=== PATIENT | female | born 1970 | race African-American/Black ===

== ENCOUNTER 2017-11-15 21:22 | Inpatient (IN) | payer SELFPAY ==
[~2017-11-15] VITALS: Ht 162.6 cm; Wt 74.3 kg
[~2017-11-15 21:22] MED LIST: CYAN1000P SC
[2017-11-15] MEDS ORDERED: IOHEXOL 350 MG/ML 10 ML VIAL (for RAD DIAG) IVCONTRAST ONE (21:23)
[2017-11-15 21:35] VITALS: BP 146/68; PULSE 78; RESP 18; TEMP 98
[2017-11-15] MEDS ORDERED: vitamin b12 (21:55)
[2017-11-15] MEDS ORDERED: SODIUM CHLOR 0.9% 1000 ML INJ 1,000 ML IV SCH (21:57)
[2017-11-15] MEDS ORDERED: MORPHINE SULFATE 4 MG/ML INJ IV PUSH ONE (22:00)
[2017-11-15] MEDS ORDERED: METOCLOPRAMIDE HCL 10 MG/2 ML VIAL IV PUSH ONE (22:00)
--- NOTE | 2017-11-15 22:17 | PD ---
HPI Chief Complaint: Abdominal Pain Time Seen by Provider: 21:42 Travel History International Travel<30 days: No Contact w/Intl Traveler<30days: No Traveled to known affect area: No History of Present Illness HPI 47-year-old female that presents to the ED for evaluation of epigastric abdominal pain. Per patient she has had this since 6:00 this afternoon. Per patient she was going to the bathroom and she started having the pain. She has not had this before. She states that she had a hysterectomy. She is still has her gallbladder. She states that the pain feels severe and sharp. Per patient is 8 out of 10. Nothing makes it better. Still states she did vomit once and felt nauseous but not anymore. No medical issues alert and pernicious anemia for which she gets IM injections of B12. Has no allergies to medication. Has not seen anybody for this. Pain not better which is what prompted evaluation. Denies any chest pain. No shortness of breath. No recent travel. No injury or trauma. No weakness or numbness. No recent surgeries. No allergies to medication. No fevers chills or sweats. PFSH Past Medical History Anemia: Yes Arthritis: No Asthma: No Autoimmune Disease: No Blood Disorders: No Heart Rhythm Problems: No Cancer: No Cardiovascular Problems: Yes High Cholesterol: No Chest Pain: Yes (THIS ADMISSION) Congestive Heart Failure: No COPD: No Cerebrovascular Accident: No Diabetes: No Diminished Hearing: No Endocrine: No GERD: No Glaucoma: No Genitourinary: No Headaches: No Hepatitis: No Hiatal Hernia: No Hypertension: No Immune Disorder: No Kidney Stones: No Musculoskeletal: No Neurologic: No Psychiatric: No Respiratory: Yes (SOB THIS ADMISSION) Myocardial Infarction: No Renal Failure: No Seizures: No Sickle Cell Disease: Yes (TRAIT) Sleep Apnea: No Thyroid Disease: No Ulcer: No Tetanus Vaccination: Unknown Influenza Vaccination: No ?: Not : 3 Para: 3 Past Surgical History Abdominal Surgery: No Cardiac Surgery: No Ear Surgery: No Endocrine Surgery: No Eye Surgery: No Genitourinary Surgery: No Gynecologic Surgery: Yes (HYSTERECTOMY) Hysterectomy: Yes Oral Surgery: No Thoracic Surgery: No Social History Alcohol Use: No Tobacco Use: No Substance Use: No Allergies-Medications (Allergen,Severity, Reaction): Coded Allergies: No Known Allergies (Unverified , 11/15/17) Reported Meds & Prescriptions Reported Meds & Active Scripts Active Reported [vitamin b12] Review of Systems Except as stated in HPI: all other systems reviewed are Neg Physical Exam Narrative GENERAL: SKIN: Warm and dry. HEAD: Atraumatic. Normocephalic. EYES: Pupils equal and round. No scleral icterus. No injection or drainage. ENT: No nasal bleeding or discharge. Mucous membranes pink and moist. Tongue is midline. No uvula deviation. NECK: Trachea midline. No JVD. CARDIOVASCULAR: Regular rate and rhythm. No murmurs, S3, S4. RESPIRATORY: No accessory muscle use. Clear to auscultation. Breath sounds equal bilaterally. GASTROINTESTINAL: Abdomen soft, tender on the upper abdominal area especially in the epigastric area and the right upper quadrant, nondistended. Hepatic and splenic margins not palpable. MUSCULOSKELETAL: Extremities without clubbing, cyanosis, or edema. No obvious deformities. Full range of motion of the upper and lower extremities bilaterally. 2+ pulses bilaterally. NEUROLOGICAL: Awake and alert. No obvious cranial nerve deficits. Motor grossly within normal limits. Five out of 5 muscle strength in the arms and legs. Normal speech. PSYCHIATRIC: Appropriate mood and affect; insight and judgment normal. Data Data Last Documented VS Vital Signs Date Time Temp Pulse Resp B/P (MAP) Pulse Ox O2 Delivery O2 Flow Rate FiO2 11/15/17 21:35 98.0 78 18 146/68 (94) Orders Orders Complete Blood Count With Diff (11/15/17 21:57) Comprehensive Metabolic Panel (11/15/17 21:57) Lipase (11/15/17 21:57) Lactic Acid (11/15/17 21:57) Urinalysis - C+S If Indicated (11/15/17 21:57) Ct Abd/Pel W Iv Contrast(Rout) (11/15/17 21:57) Iv Access Insert/Monitor (11/15/17 21:57) Ecg Monitoring (11/15/17 21:57) Morphine Inj (Morphine Inj) (11/15/17 22:00) Sodium Chlor 0.9% 1000 Ml Inj (Ns 1000 M (11/15/17 21:57) Metoclopramide Inj (Reglan Inj) (11/15/17 22:00) Electrocardiogram (11/15/17 ) MDM Medical Decision Making Medical Screen Exam Complete: Yes Emergency Medical Condition: Yes Medical Record Reviewed: Yes Differential Diagnosis Cholecystitis versus cholelithiasis versus pancreatitis versus gastritis versus acute abdomen versus obstruction Narrative Course 47-year-old female that presents to the ED for evaluation of epigastric abdominal pain. Labs and imaging order. Patient was given IV pain medications and antiemetics and fluids. Case signed out to my attending pending disposition and plan. Bassam Bob Nov 15, 2017 22:17
--- NOTE | 2017-11-15 22:25 | HHI.HP ---
[facility] Primary [facility] Physician No Primary Care Physician Admission Diagnosis Diagnoses: Travel History International Travel<30 Days: No Contact w/Intl Traveler <30 Da: No Traveled to Known Affected Are: No Past Family Social History Allergies: Coded Allergies: No Known Allergies (Unverified , 11/15/17) Physical Exam Vital Signs Vital Signs Date Time Temp Pulse Resp B/P (MAP) Pulse Ox O2 Delivery O2 Flow Rate FiO2 11/15/17 21:35 98.0 78 18 146/68 (94) Physical Exam GENERAL: This is a well-nourished, well-developed patient, in no apparent distress. SKIN: No rashes, ecchymoses or lesions. Cool and dry. HEAD: Atraumatic. Normocephalic. No temporal or scalp tenderness. EYES: Pupils equal round and reactive. Extraocular motions intact. No scleral icterus. No injection or drainage. ENT: Nose without bleeding, purulent drainage or septal hematoma. Throat without erythema, tonsillar hypertrophy or exudate. Uvula midline. Airway patent. NECK: Trachea midline. No JVD or lymphadenopathy. Supple, nontender, no meningeal signs. CARDIOVASCULAR: Regular rate and rhythm without murmurs, gallops, or rubs. RESPIRATORY: Clear to auscultation. Breath sounds equal bilaterally. No wheezes , rales, or rhonchi. GASTROINTESTINAL: Abdomen soft, non-tender, nondistended. No hepato-splenomegaly , or palpable masses. No guarding. MUSCULOSKELETAL: Extremities without clubbing, cyanosis, or edema. No joint tenderness, effusion, or edema noted. No calf tenderness. Negative Homans sign bilaterally. NEUROLOGICAL: Awake and alert. Cranial nerves II through XII intact. Motor and sensory grossly within normal limits. Five out of 5 muscle strength in all muscle groups. Normal speech. Caprini VTE Risk Assessment Caprini Risk Assessment Model Point Value = 1 Point Value = 2 Point Value = 3 Point Value = 5 Age 41-60 Minor surgery BMI > 25 kg/m2 Swollen legs Varicose veins or History of unexplained or recurrent spontaneous Oral contraceptives or hormone replacement Sepsis (< 1 month) Serious lung disease, including pneumonia (< 1 month) Abnormal pulmonary function Acute myocardial infarction Congestive heart failure (< 1 month) History of inflammatory bowel disease Medical patient at bed rest Age 61-74 Arthroscopic surgery Major open surgery (> 45 min) Laparoscopic surgery (> 45 min) Malignancy Confined to bed (> 72 hours) Immobilizing plaster cast Central venous access Age >= 75 History of VTE Family history of VTE Factor V Leiden Prothrombin [id number] Lupus anticoagulant Anticardiolipin antibodies Elevated serum homocysteine Heparin-induced thrombocytopenia Other congenital or acquired thrombophilia Stroke (< 1 month) Elective arthroplasty Hip, pelvis, or leg fracture Acute spinal cord injury (< 1 month) Prophylaxis Regimen Total Risk Factor Score Risk Level Prophylaxis Regimen 0-1 Low Early ambulation 2 Moderate Order ONE of the following: *Sequential Compression Device (SCD) *Heparin 5000 units SQ BID 3-4 Higher Order ONE of the following medications: *Heparin 5000 units SQ TID *Enoxaparin/Lovenox 40 mg SQ daily (WT < 150 kg, CrCl > 30 mL/min) *Enoxaparin/Lovenox 30 mg SQ daily (WT < 150 kg, CrCl > 10-29 mL/min) *Enoxaparin/Lovenox 30 mg SQ BID (WT < 150 kg, CrCl > 30 mL/min) AND/OR *Sequential Compression Device (SCD) 5 or more Highest Order ONE of the following medications: *Heparin 5000 units SQ TID (Preferred with Epidurals) *Enoxaparin/Lovenox 40 mg SQ daily (WT < 150 kg, CrCl > 30 mL/min) *Enoxaparin/Lovenox 30 mg SQ daily (WT < 150 kg, CrCl > 10-29 mL/min) *Enoxaparin/Lovenox 30 mg SQ BID (WT < 150 kg, CrCl > 30 mL/min) AND *Sequential Compression Device (SCD) Physician Certification Order for Inpatient Services The services are ordered in accordance with Medicare regulations or non- Medicare payer requirements, as applicable. In the case of services not specified as inpatient-only, they are appropriately provided as inpatient services in accordance with the 2-midnight benchmark. days is the estimated time the patient will need to remain in the hospital, assuming treatment plan goals are met and no additional complications. Sarah Marshall MD Nov 15, 2017 22:25
--- NOTE | 2017-11-15 22:29 | PD ---
Physical Exam Date Seen by Provider: Nov 15, 2017 Data Data Last Documented VS Vital Signs Date Time Temp Pulse Resp B/P (MAP) Pulse Ox O2 Delivery O2 Flow Rate FiO2 11/16/17 00:25 98.0 88 20 140/72 (94) 98 Room Air Orders Orders Complete Blood Count With Diff (11/15/17 21:57) Comprehensive Metabolic Panel (11/15/17 21:57) Lipase (11/15/17 21:57) Lactic Acid (11/15/17 21:57) Urinalysis - C+S If Indicated (11/15/17 21:57) Ct Abd/Pel W Iv Contrast(Rout) (11/15/17 21:57) Iv Access Insert/Monitor (11/15/17 21:57) Ecg Monitoring (11/15/17 21:57) Morphine Inj (Morphine Inj) (11/15/17 22:00) Sodium Chlor 0.9% 1000 Ml Inj (Ns 1000 M (11/15/17 21:57) Metoclopramide Inj (Reglan Inj) (11/15/17 22:00) Electrocardiogram (11/15/17 ) Us Abdomen Gallbladder (11/15/17 ) Urine Culture (11/15/17 22:20) Sodium Chlor 0.9% 1000 Ml Inj (Ns 1000 M (11/15/17 23:00) Piperacil-Tazo 3.375 Gm Premix (Zosyn 3. (11/15/17 23:30) Sodium Chlor 0.9% 1000 Ml Inj (Ns 1000 M (11/15/17 23:30) Iohexol 350 Inj (Omnipaque 350 Inj) (11/15/17 21:23) Blood Culture (11/16/17 01:10) Admit Order (Ed Use Only) (11/16/17 01:16) Labs Laboratory Tests Test 11/15/17 22:20 White Blood Count 13.2 TH/MM3 Red Blood Count 4.96 MIL/MM3 Hemoglobin 13.1 GM/DL Hematocrit 39.8 % Mean Corpuscular Volume 80.3 FL Mean Corpuscular Hemoglobin 26.4 PG Mean Corpuscular Hemoglobin Concent 32.8 % Red Cell Distribution Width 13.2 % Platelet Count 241 TH/MM3 Mean Platelet Volume 9.6 FL Neutrophils (%) (Auto) 89.6 % Lymphocytes (%) (Auto) 5.3 % Monocytes (%) (Auto) 4.8 % Eosinophils (%) (Auto) 0.1 % Basophils (%) (Auto) 0.2 % Neutrophils # (Auto) 11.8 TH/MM3 Lymphocytes # (Auto) 0.7 TH/MM3 Monocytes # (Auto) 0.6 TH/MM3 Eosinophils # (Auto) 0.0 TH/MM3 Basophils # (Auto) 0.0 TH/MM3 CBC Comment DIFF FINAL Differential Comment Urine Color YELLOW Urine Turbidity CLEAR Urine pH 6.5 Urine Specific Sherman 1.009 Urine Protein NEG mg/dL Urine Glucose (UA) NEG mg/dL Urine Ketones NEG mg/dL Urine Occult Blood NEG Urine Nitrite NEG Urine Bilirubin NEG Urine Urobilinogen 8.0 MG/DL Urine Leukocyte Esterase SMALL Urine RBC 1 /hpf Urine WBC 3 /hpf Urine Squamous Epithelial Cells 1 /hpf Urine Bacteria MANY /hpf Urine Mucus FEW /lpf Microscopic Urinalysis Comment CULTURE INDICATED Blood Urea Nitrogen 5 MG/DL Creatinine 0.89 MG/DL Random Glucose 105 MG/DL Total Protein 7.7 GM/DL Albumin 3.9 GM/DL Calcium Level 8.5 MG/DL Alkaline Phosphatase 119 U/L Aspartate Amino Transf (AST/SGOT) 72 U/L Alanine Aminotransferase (ALT/SGPT) 43 U/L Total Bilirubin 0.6 MG/DL Sodium Level 143 MEQ/L Potassium Level 3.9 MEQ/L Chloride Level 108 MEQ/L Carbon Dioxide Level 24.7 MEQ/L Anion Gap 10 MEQ/L Lactic Acid Level 3.9 mmol/L Lipase 23972 U/L [facility] Medical Record Reviewed: Yes Supervised Visit with JERZY: Yes Narrative Course I, Dr. Carlson, have reviewed the advance practice practitioner's documentation and am in agreement, met with the patient face to face, made the diagnosis, and the medical decision making was done by me. *My assessment and Findings: Patient is a 47-year-old female who presents to the emergency room with complaints of upper abdominal pain which began around 6:30 PM tonight. Patient reports that she has been feeling nauseous with her symptoms, denies any vomiting. Patient denies any constipation or diarrhea, denies any fever or chills. Patient reports that she just finished eating dinner at [facility] when symptoms began. Reports only history of hysterectomy for abdominal surgeries in the past. Patient with no chest pain or shortness of breath. Lab work including CT of the abdomen pelvis currently pending. Patient will be given IV fluids, morphine for pain and antinausea medication. CBC & BMP Diagram 11/15/17 22:20 Total Protein 7.7, Albumin 3.9, Calcium Level 8.5, Alkaline Phosphatase 119 H, Aspartate Amino Transf (AST/SGOT) 72 H, Alanine Aminotransferase (ALT/SGPT) 43, Total Bilirubin 0.6 Lactic acid is 3.9 [id number] UA is positive for many bacteria, small leuk esterase Last Impressions Abdomen/Pelvis CT 11/15/177 Signed Impressions: CONCLUSION: 1. Mildly complex bilateral cystic contiguous adnexal mass. A primary consider ation is a cystic ovarian neoplasm such as a cystadenoma. No evidence of ascite s. 2. Nonspecific 2.1 x 2.6 cm hyperdense nodule in the anterior right lower quad rant may represent opacification within bowel or solid nodule. No other bowel i s opacified to this degree. 3. Appendix within normal limits. 4. Cholelithiasis. Gall Bladder Ultrasound 11/15/17 0000 Signed Impressions: CONCLUSION: Cholelithiasis. No gallbladder wall thickening or pericholecystic fluid. Patient with a lactic acid of 3.9, she has been pancultured and was given a dose of Zosyn. Patient's lipase is elevated over 19,000, patient with most likely pancreatitis. No hx of drug abuse. US gallbladder with no thickening or pericholecystic fluid. Patient with no evidence of pancreatitis on her CT of the abdomen pelvis. She does appear to have adnexal mass as well as nodules in her abdomen, she was given a copy of her CT report as she will need to follow- up with all incidental findings. Plan to admit to the patient to the hospital at this time. Physician Communication Physician Communication case reviewed with Dr. Marshall Diagnosis Primary Impression: Pancreatitis Qualified Codes: K85.90 - Acute pancreatitis without necrosis or infection, unspecified Additional Impression: Lactic acidosis Admitting Information Admitting Physician Requests: Taina Hedrick DO Nov 15, 2017 22:29
[2017-11-15 22:34] LABS: AUTOMATED NEUTROPHIL # 11.8 TH/MM3 (1.8-7.7); BASOPHIL % 0.2 % (0.0-2.0); EOSINOPHIL % 0.1 % (0.0-4.0); HEMATOCRIT 39.8 % (35.0-46.0); HEMOGLOBIN 13.1 GM/DL (11.6-15.3); LYMPH % 5.3 % (9.0-44.0); LYMPHOCYTE # 0.7 TH/MM3 (1.0-4.8); MEAN CELL VOLUME 80.3 FL (80.0-100.0); MEAN CORPUSCULAR HEMOGLOBIN 26.4 PG (27.0-34.0); MEAN CORPUSCULAR HGB CONC 32.8 % (32.0-36.0); MEAN PLATELET VOLUME 9.6 FL (7.0-11.0); MONO % 4.8 % (0.0-8.0); MONOCYTE # 0.6 TH/MM3 (0-0.9); NEUT % 89.6 % (16.0-70.0); PLATELET COUNT 241 TH/MM3 (150-450); RED BLOOD COUNT 4.96 MIL/MM3 (4.00-5.30); RED CELL DISTRIBUTION WIDTH 13.2 % (11.6-17.2); WHITE BLOOD COUNT 13.2 TH/MM3 (4.0-11.0)
[2017-11-15 22:41] LABS: BACTERIA, URINE MANY /hpf; BILIRUBIN, URINE NEG (NEG); BLOOD, URINE NEG (NEG); GLUCOSE,URINE NEG (NEG); KETONE, URINE NEG (NEG); MUCUS URINE FEW /lpf (OCC); NITRITE,URINE NEG (NEG); PH, URINE 6.5 (5.0-8.5); SQUAMOUS EPITHELIAL CELL URINE 1 /hpf (0-5); URINE COLOR YELLOW (YELLW/STRAW); URINE LEUKOCYTE ESTERASE SMALL (NEG)
[2017-11-15 22:50] LABS: ALBUMIN 3.9 GM/DL (3.4-5.0); ALT (GPT) 43 U/L (10-53); AST (GOT) 72 U/L (15-37); BICARBONATE 24.7 MEQ/L (21.0-32.0); BLOOD UREA NITROGEN 5 MG/DL (7-18); CALCIUM 8.5 MG/DL (8.5-10.1); CHLORIDE 108 MEQ/L (98-107); CREATININE 0.89 MG/DL (0.50-1.00); GLUCOSE,RANDOM 105 MG/DL (74-106); SODIUM (NA) 143 MEQ/L (136-145)
[2017-11-15 22:53] LABS: ALKALINE PHOSPHATASE 119 U/L (45-117); TOTAL BILIRUBIN ADULT 0.6 MG/DL (0.2-1.0); TOTAL PROTEIN 7.7 GM/DL (6.4-8.2)
[2017-11-15] MEDS ORDERED: SODIUM CHLOR 0.9% 1000 ML INJ 1,000 ML IV ONE ×2 (23:00→23:30)
--- NOTE | 2017-11-15 23:15 | RADRPT ---
EXAM DATE: 11/15/2017 11:09 PM EDT AGE/SEX: 47 years / Female INDICATIONS: Right upper quadrant pain. CLINICAL DATA: This is the patient's initial encounter. Patient reports that signs and/or symptoms h ave been present for 1 day and indicates a pain score of 6/10. MEDICAL/SURGICAL HISTORY: Aneurysm, abdominal. Shortness of breath. Sickle cell disease. Chest pain . Anemia. Hysterectomy. Fracture repair, arm. COMPARISON: No prior exams available for comparison. MEASUREMENTS (cm x cm x cm): Liver:__ 14.4 cm length Common Bile Duct:__ 4mm FINDINGS: Liver: Normal echotexture without focal lesion or ductal dilatation. Portal Vein: Hepatopedal flow seen in portal vein. Common Duct: No intralumincal mass or stone visualized. Gallbladder: Multiple small mobile shadowing gallstones in the dependent portion of the gallbladder. No wall thickening or pericholecystic fluid. Pancreas: The visualized portions are within normal limits Right Kidney: No mass or hydronephrosis Other: None. CONCLUSION: Cholelithiasis. No gallbladder wall thickening or pericholecystic fluid. Electronically signed by: Jaylen Lua MD 11/15/2017 11:13 PM EDT
[2017-11-15] MEDS ORDERED: PIPERACIL-TAZO 3.375 GM PREMIX 50 ML IV ONE (23:30)
[2017-11-16 00:25] VITALS: BP 140/72; PULSE 88; RESP 20; TEMP 98; O2SAT 98
--- NOTE | 2017-11-16 00:34 | RADRPT ---
EXAM DATE: 11/15/2017 11:54 PM EDT AGE/SEX: 47 years / Female INDICATIONS: Abdomen pain. CLINICAL DATA: This is the patient's initial encounter. Patient reports that signs and symptoms have been present for 1 day and indicates a pain score of 7/10. MEDICAL/SURGICAL HISTORY: Sickle Cell disease. Hysterectomy. ORAL CONTRAST: No oral contrast ingested. RADIATION DOSE: 8.08 CTDI (mGy) COMPARISON: No prior exams available for comparison. TECHNIQUE: Multiple contiguous axial images were obtained through the abdomen and pelvis following b olus infusion of 95 ml Omnipaque 350 (iohexol) nonionic water-soluble contrast as a single exam dos e. No oral contrast ingested. Using automated exposure control and adjustment of the mA and/or kV ac cording to patient size, the radiation dose was kept as low as reasonably achievable to obtain optima l diagnostic quality images. FINDINGS: Lower Lungs: The visualized lower lungs are clear. Liver: The liver has a homogeneous density without space-occupying lesion. There is no dilation of th e biliary tree. Multiple small gallstones are seen at the dependent portion of the gallbladder. No pe richolecystic inflammatory changes. Spleen: Homogeneous density without enlargement. Pancreas: Unremarkable without mass or calcification. Kidneys: Normal in size and shape. No evidence of mass or hydronephrosis. Adrenal Glands: Unremarkable. Aorta: The aorta and proximal iliac vessels are grossly unremarkable without aneurysmal dilation. Bowel/Mesentery: No evidence of bowel dilatation. No free air or free fluid. Appendix within normal limits. Abdominal Wall: Intact. Retroperitoneum: No evidence of adenopathy in the retrocrural, para-aortic, or deep pelvic regions. Bladder: Contours are smooth. Reproductive Organs: Multiloculated complex cystic mass involving the right and left adnexal regions measuring 8.8 x 5.6 x 4.8 cm. There is a rounded 2.6 x 2.2 cm hyperdensity in the anterior right low er quadrant adjacent to the inguinal canal that may represent opacified bowel or mass. Inguinal: The inguinal region is unremarkable without evidence of adenopathy. Bony Structures: Unremarkable. CONCLUSION: 1. Mildly complex bilateral cystic contiguous adnexal mass. A primary consideration is a cystic ovar izaiah neoplasm such as a cystadenoma. No evidence of ascites. 2. Nonspecific 2.1 x 2.6 cm hyperdense nodule in the anterior right lower quadrant may represent opa cification within bowel or solid nodule. No other bowel is opacified to this degree. 3. Appendix within normal limits. 4. Cholelithiasis. Electronically signed by: Jaylen Lua MD 11/16/2017 12:33 AM EDT
[2017-11-16] MEDS ORDERED: MAGNESIUM HYDROXIDE SUSP 30 ML CUP PO PRN (01:15)
[2017-11-16] MEDS ORDERED: ACETAMINOPHEN 325 MG TAB PO PRN (01:15)
[2017-11-16] MEDS ORDERED: SODIUM CHLORIDE 0.9% FLUSH 10 ML FLUSH IV FLUSH PRN (01:15)
[2017-11-16] MEDS ORDERED: ACETAMINOPHEN/HYDROcodone 325 MG/5 MG TAB PO PRN (01:15)
[2017-11-16] MEDS ORDERED: METOCLOPRAMIDE HCL 10 MG/2 ML VIAL IV PUSH PRN (01:15)
[2017-11-16] MEDS ORDERED: BISACODYL 10 MG SUPP RECTAL PRN (01:15)
[2017-11-16] MEDS ORDERED: SENNOSIDES 8.6 MG TAB PO PRN (01:15)
[2017-11-16] MEDS ORDERED: LACTULOSE SYRUP 20 GM/30 ML CUP PO PRN (01:15)
[2017-11-16] MEDS ORDERED: MORPHINE SULFATE 4 MG/ML INJ IV PUSH PRN (01:15)
--- NOTE | 2017-11-16 01:44 | HHI.HP ---
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 States symptoms started abruptly yesterday afternoon after eating pork chops and mashed potatoes. Pain is severe, 10/10, constant, non-radiating, associated w/ nausea/vomiting. No h/o similar symptoms. Denies fever, chills or diarrhea. On arrival, BP 146/68, HR 78, O2 sat 98% on RA, Afebrile. WBC 13.2, previously 1.8 on 11/15/2014. Hemoglobin 13.1, previously 8.7 on 2014. Chemistry essentially unremarkable. Lactic Acid 3.9. AST 72, ALT 43, ALP 119, Total Bili 0.6. Lipase 19,383. UA positive for UTI. CT Abdomen/ Pelvis complex bilateral cystic contiguous adnexal mass, possible cystic ovarian neoplasm, nonspecific hyperdense nodule right lower quadrant. US Gallbladder cholelithiasis, no gallbladder wall thickening or pericholecystic fluid. No previous h/o Pancreatitis. S/p Zosyn in ER. Review of Systems Except as stated in HPI: all other systems reviewed are Neg ROS: 14 point review of systems otherwise negative. Past Family Social History Past Medical History PMH: Pernicious Anemia on B12 Past Surgical History PAST SURGICAL HISTORY: Hysterectomy Allergies: Coded Allergies: No Known Allergies (Unverified , 11/15/17) Family History PAST FAMILY HISTORY: Reviewed. No h/o DM or CAD Social History PAST SOCIAL HISTORY: Negative for alcohol, tobacco or drugs. Physical Exam Vital Signs Vital Signs Date Time Temp Pulse Resp B/P (MAP) Pulse Ox O2 Delivery O2 Flow Rate FiO2 6/11/18 00:25 98.0 88 20 140/72 (94) 98 Room Air 11/15/17 23:24 20 11/15/17 21:35 98.0 78 18 146/68 (94) Physical Exam PE: GENERAL: Pleasant middle-aged white female in no acute distress. HEENT: PERRLA, EOMI. No scleral icterus or conjunctival pallor. No lid lag or facial droop. CARDIOVASCULAR: Regular rate and rhythm. No obvious murmurs to auscultation. No chest tenderness to palpation. RESPIRATORY: No obvious rhonchi or wheezing. Clear to auscultation. Breath sounds equal bilaterally. GASTROINTESTINAL: Abdomen soft, epigastric tenderness palpation, nondistended. BS normal. MUSCULOSKELETAL: Extremities without clubbing, cyanosis, or edema. No obvious deformities. NEUROLOGICAL: Awake, alert and oriented x4. No focal neurologic deficits. Moving both upper and lower extremities spontaneously. Laboratory Laboratory Tests Test 11/15/17 22:20 White Blood Count 13.2 Red Blood Count 4.96 Hemoglobin 13.1 Hematocrit 39.8 Mean Corpuscular Volume 80.3 Mean Corpuscular Hemoglobin 26.4 Mean Corpuscular Hemoglobin Concent 32.8 Red Cell Distribution Width 13.2 Platelet Count 241 Mean Platelet Volume 9.6 Neutrophils (%) (Auto) 89.6 Lymphocytes (%) (Auto) 5.3 Monocytes (%) (Auto) 4.8 Eosinophils (%) (Auto) 0.1 Basophils (%) (Auto) 0.2 Neutrophils # (Auto) 11.8 Lymphocytes # (Auto) 0.7 Monocytes # (Auto) 0.6 Eosinophils # (Auto) 0.0 Basophils # (Auto) 0.0 CBC Comment DIFF FINAL Differential Comment Urine Color YELLOW Urine Turbidity CLEAR Urine pH 6.5 Urine Specific [place] 1.009 Urine Protein NEG Urine Glucose (UA) NEG Urine Ketones NEG Urine Occult Blood NEG Urine Nitrite NEG Urine Bilirubin NEG Urine Urobilinogen 8.0 Urine Leukocyte Esterase SMALL Urine RBC 1 Urine WBC 3 Urine Squamous Epithelial Cells 1 Urine Bacteria MANY Urine Mucus FEW Microscopic Urinalysis Comment CULTURE INDICATED Blood Urea Nitrogen 5 Creatinine 0.89 Random Glucose 105 Total Protein 7.7 Albumin 3.9 Calcium Level 8.5 Alkaline Phosphatase 119 Aspartate Amino Transf (AST/SGOT) 72 Alanine Aminotransferase (ALT/SGPT) 43 Total Bilirubin 0.6 Sodium Level 143 Potassium Level 3.9 Chloride Level 108 Carbon Dioxide Level 24.7 Anion Gap 10 Lactic Acid Level 3.9 Lipase 72530 Date/Time Source Procedure Growth Status 11/15/17 22:20 Urine Random Urine Urine Culture Pending Received Result Diagram: 11/15/17221911/15/172219 Caprini VTE Risk Assessment Caprini VTE Risk Assessment: No/Low Risk (score <= 1) Caprini Risk Assessment Model Point Value = 1 Point Value = 2 Point Value = 3 Point Value = 5 Age 41-60 Minor surgery BMI > 25 kg/m2 Swollen legs Varicose veins or History of unexplained or recurrent spontaneous Oral contraceptives or hormone replacement Sepsis (< 1 month) Serious lung disease, including pneumonia (< 1 month) Abnormal pulmonary function Acute myocardial infarction Congestive heart failure (< 1 month) History of inflammatory bowel disease Medical patient at bed rest Age 61-74 Arthroscopic surgery Major open surgery (> 45 min) Laparoscopic surgery (> 45 min) Malignancy Confined to bed (> 72 hours) Immobilizing plaster cast Central venous access Age >= 75 History of VTE Family history of VTE Factor V Leiden Prothrombin 61029A Lupus anticoagulant Anticardiolipin antibodies Elevated serum homocysteine Heparin-induced thrombocytopenia Other congenital or acquired thrombophilia Stroke (< 1 month) Elective arthroplasty Hip, pelvis, or leg fracture Acute spinal cord injury (< 1 month) Prophylaxis Regimen Total Risk Factor Score Risk Level Prophylaxis Regimen 0-1 Low Early ambulation 2 Moderate Order ONE of the following: *Sequential Compression Device (SCD) *Heparin 5000 units SQ BID 3-4 Higher Order ONE of the following medications: *Heparin 5000 units SQ TID *Enoxaparin/Lovenox 40 mg SQ daily (WT < 150 kg, CrCl > 30 mL/min) *Enoxaparin/Lovenox 30 mg SQ daily (WT < 150 kg, CrCl > 10-29 mL/min) *Enoxaparin/Lovenox 30 mg SQ BID (WT < 150 kg, CrCl > 30 mL/min) AND/OR *Sequential Compression Device (SCD) 5 or more Highest Order ONE of the following medications: *Heparin 5000 units SQ TID (Preferred with Epidurals) *Enoxaparin/Lovenox 40 mg SQ daily (WT < 150 kg, CrCl > 30 mL/min) *Enoxaparin/Lovenox 30 mg SQ daily (WT < 150 kg, CrCl > 10-29 mL/min) *Enoxaparin/Lovenox 30 mg SQ BID (WT < 150 kg, CrCl > 30 mL/min) AND *Sequential Compression Device (SCD) Assessment and Plan Problem List: (1) Pancreatitis ICD Code: K85.90 - Acute pancreatitis without necrosis or infection, unspecified Status: Acute (2) Adnexal mass ICD Code: N94.9 - Unspecified condition associated with female genital organs and menstrual cycle (3) UTI (urinary tract infection) ICD Code: N39.0 - Urinary tract infection, site not specified (4) Lactic acidosis ICD Code: E87.2 - Acidosis Assessment and Plan A/P: 1. Pancreatitis: acute onset of epigastric pain, Lipase 19,383, no h/o Pancreatitis. CT Abd/Pelvis w/ no peripancreatic inflammation, Gallbladder US w / cholelithiasis however no wall t hickening, images reviewed by me. LFTs minimally elevated, Total Bili normal, will repeat labs in am. NPO, IVF, Check Lipid Profile, TSH and Hgb A1c. Analgesics/antiemetics as needed. 2. Adnexal Mass: CT Abd/Pelvis w/ mildly complex bilateral cystic contiguous adnexal mass, possibly cystic ovarian neoplasm, images reviewed by me. Pt denies previous knowledge of similar finding. Will check Transvaginal US, Consult GynOnc as needed for further evaluation/intervention. 3. UTI: U/a w/ UTI, WBC 13, s/p Zosyn in ER, will continue w/ IV Abx, IVF, followup cultures. 4. Lactic Acidosis: Lactic Acid 3.9, likely due to dehydration from acute nausea/vomiting rather than sepsis, IVF, check repeat Lactic Acid, monitor closely. Blood Cultures pending 5. DVT Prophylaxis: SCD/Teds 6. Social work for d/c planning as needed. 7. Case discussed w/ ER physician at length, labs/records/imaging reviewed by me. Physician Certification 2 Midnight Certification Type: Admission for Inpatient Services Order for Inpatient Services The services are ordered in accordance with Medicare regulations or non- Medicare payer requirements, as applicable. In the case of services not specified as inpatient-only, they are appropriately provided as inpatient services in accordance with the 2-midnight benchmark. Estimated LOS (days): 2 days is the estimated time the patient will need to remain in the hospital, assuming treatment plan goals are met and no additional complications. Post-Hospital Plan: Not yet determined Problem Qualifiers (1) Pancreatitis: Qualified Codes: K85.90 - Acute pancreatitis without necrosis or infection, unspecified Sarah Marshall MD Nov 16, 2017 01:44
[2017-11-16 02:00] VITALS: BP 142/64; PULSE 79; RESP 18; TEMP 97.3; O2SAT 99
[2017-11-16] MEDS: SODIUM CHLOR 0.9% 1000 ML INJ 1,000 ML IV SCH ×2 (02:21→23:41)
[2017-11-16 08:00] VITALS: PULSE 59; RESP 17; TEMP 98.1; O2SAT 98
[2017-11-16] MEDS: SODIUM CHLORIDE 0.9% FLUSH 10 ML FLUSH IV FLUSH SCH ×2 (09:00→21:00)
[2017-11-16] MEDS ORDERED: CEFEPIME INJ 1,000 MG in SODIUM CHLORIDE 0.9% INJ 100 ML IV SCH (09:00)
[2017-11-16] MEDS: DOCUSATE SODIUM 50 MG/SENNA 8.6 MG TAB PO SCH ×2 (09:47→21:00)
[2017-11-16 10:51] LABS: AUTOMATED NEUTROPHIL # 4.3 TH/MM3 (1.8-7.7); BASOPHIL % 0.4 % (0.0-2.0); EOSINOPHIL % 0.8 % (0.0-4.0); HEMOGLOBIN 11.9 GM/DL (11.6-15.3); LYMPH % 20.6 % (9.0-44.0); LYMPHOCYTE # 1.2 TH/MM3 (1.0-4.8); MEAN CELL VOLUME 81.1 FL (80.0-100.0); MEAN CORPUSCULAR HEMOGLOBIN 26.1 PG (27.0-34.0); MEAN CORPUSCULAR HGB CONC 32.2 % (32.0-36.0); MONO % 5.2 % (0.0-8.0); MONOCYTE # 0.3 TH/MM3 (0-0.9); PLATELET COUNT 189 TH/MM3 (150-450); RED BLOOD COUNT 4.57 MIL/MM3 (4.00-5.30); RED CELL DISTRIBUTION WIDTH 13.5 % (11.6-17.2); WHITE BLOOD COUNT 5.9 TH/MM3 (4.0-11.0)
[2017-11-16 11:17] LABS: ALBUMIN 3.2 GM/DL (3.4-5.0); ALKALINE PHOSPHATASE 104 U/L (45-117); ALT (GPT) 33 U/L (10-53); AST (GOT) 28 U/L (15-37); BICARBONATE 20.3 MEQ/L (21.0-32.0); BLOOD UREA NITROGEN 5 MG/DL (7-18); CALCIUM 7.6 MG/DL (8.5-10.1); CHLORIDE 114 MEQ/L (98-107); CHOLESTEROL 112 MG/DL (120-200); CHOLESTEROL/ HDL RATIO 1.83 RATIO; CREATININE 0.67 MG/DL (0.50-1.00); GLOMERULAR FILTRATION RATE 114 ML/MIN (>89); GLUCOSE,RANDOM 70 MG/DL (74-106); HDL CHOLESTEROL 61.1 MG/DL (40.0-60.0); LDL CHOLESTEROL 43 MG/DL (0-99); SODIUM (NA) 143 MEQ/L (136-145); TOTAL BILIRUBIN ADULT 0.4 MG/DL (0.2-1.0); TOTAL PROTEIN 6.8 GM/DL (6.4-8.2); TRIGLYCERIDES 40 MG/DL (42-150)
--- NOTE | 2017-11-16 11:21 | HHI.PR ---
Subjective Remarks No abdominal pain since admission. Feels hungry. Wants to eat. Objective Vitals Vital Signs Date Time Temp Pulse Resp B/P (MAP) Pulse Ox O2 Delivery O2 Flow Rate FiO2 11/16/17 08:00 98.1 59 17 98 11/16/17 02:00 97.3 79 18 142/64 (90) 99 11/16/17 00:25 98.0 88 20 140/72 (94) 98 Room Air 11/15/17 23:24 20 11/15/17 21:35 98.0 78 18 146/68 (94) Result Diagram: 11/16/17 1000 11/15/17 2220 Objective Remarks GENERAL: This is a well-nourished, well-developed patient, in no apparent distress. CARDIOVASCULAR: Regular rate and rhythm without murmurs, gallops, or rubs. RESPIRATORY: Clear to auscultation. Breath sounds equal bilaterally. No wheezes , rales, or rhonchi. GASTROINTESTINAL: Abdomen soft, non-tender, nondistended. Normal active bowel sounds MUSCULOSKELETAL: Extremities without clubbing, cyanosis, or edema. NEURO: Alert & Oriented x4 to person, place, time, situation. Moves all ext x4 A/P Problem List: (1) Pancreatitis ICD Code: K85.90 - Acute pancreatitis without necrosis or infection, unspecified Status: Acute (2) Adnexal mass ICD Code: N94.9 - Unspecified condition associated with female genital organs and menstrual cycle (3) UTI (urinary tract infection) ICD Code: N39.0 - Urinary tract infection, site not specified (4) Lactic acidosis ICD Code: E87.2 - Acidosis Assessment and Plan 1. Acute biliary pancreatitis: Supportive care IV fluid hydration, bowel rest overnight and will start clear liquids today and advance diet as tolerated. Lipase levels Currently pending. Patient advised of following up with general surgery for evaluation for cholecystectomy upon discharge. 2. Bilateral adnexal Mass: CT Abd/Pelvis w/ mildly complex bilateral cystic contiguous adnexal mass, possibly cystic ovarian neoplasm. Pt denies previous knowledge of similar finding. Will check Transvaginal US, pending pelvic ultrasound results consideration for further [employer] consultation if needed 3. UTI: U/a w/ UTI, WBC 13, s/p Zosyn in ER, will stop IV antibiotics and start patient on oral Cipro until final urine cultures are available. 4. Lactic Acidosis: Lactic Acid 3.9, likely due to dehydration from acute nausea/vomiting rather than sepsis, IVF, check repeat Lactic Acid currently pending, monitor closely. Blood Cultures pending 5. DVT prophylaxis -bilateral SCDs Discharge Planning Possibly home in the morning pending patient's clinical status Problem Qualifiers (1) Pancreatitis: Qualified Codes: K85.90 - Acute pancreatitis without necrosis or infection, unspecified Enid Ramirez MD Nov 16, 2017 11:21
--- NOTE | 2017-11-16 11:40 | RADRPT ---
EXAM DATE: 11/16/2017 11:05 AM EDT AGE/SEX: 47 years / Female INDICATIONS: Mass seen on Cat Scan. CLINICAL DATA: This is the patient's initial encounter. Patient reports that signs and symptoms have been present for 1 day and indicates a pain score of 0/10. MEDICAL/SURGICAL HISTORY: . Sickle cell trait. Hyste[place]. [place] [facility] [place]/15/[place]. . MEASUREMENTS: Uterus:__absent. Endometrial Stripe:__N/A Right Ovary:__ 5.3 x 5.2 x 4.0 cm Left Ovary:__ 4.6 x 4.7 x 2.7 cm FINDINGS: Patient declined transvaginal imaging. Uterus: Supracervical hysterectomy.. Right Ovary: A simple appearing cyst is seen occupying much of the right ovary. This measures 4.2 x 3.3 x 4.7 cm. A normal waveform is seen involving the right ovary. Left Ovary: A simple appearing cyst is seen occupying much of the left ovary. This measures 3.3 x 2. 7 x 2.7 cm. A normal waveform is seen involving the left ovary. Other: No free fluid. There is a solid hypoechoic nodule involving the anterior aspects of the right lower quadrant. This measures 2.5 x 2.3 x 2.1 cm. This correlates to the nodule seen on the recent C T scan. It is well-circumscribed and smoothly marginated. CONCLUSION: 1. Simple cysts involving the ovaries bilaterally as detailed above. 2. 2.5 x 2.3 x 2.1 cm solid nodule involving the anterior aspects of the right lower quadrant which correlates to the nodule seen on the recent CT scan. The appearance is nonspecific. Electronically signed by: Janes Merino MD 11/16/2017 11:39 AM EDT
[2017-11-16 12:00] VITALS: BP 121/68; PULSE 76; RESP 18; TEMP 97.9; O2SAT 99
--- NOTE | 2017-11-16 14:48 | EKG ---
Date Performed: 11/15/2017 Time Performed: 21:54:46 PTAGE: 47 years EKG: Sinus rhythm POSSIBLE LEFT ATRIAL ENLARGEMENT LOW QRS VOLTAGE IN PRECORDIAL LEADS POSSIBLE RIGHT VENTRICULAR COND UCTION DELAY BORDERLINE ECG Since the PREVIOUS TRACING , no significant change noted PREVIOUS TRACIN11/11/2014 16.29 DOCTOR: Prashanth Logan Interpretating Date/Time 11/16/2017 14:46:50
[2017-11-16 16:00] VITALS: BP 143/82; PULSE 64; RESP 18; TEMP 98.1; O2SAT 100
[2017-11-16 19:53] LABS: HEMOGLOBIN A1C 4.3 % (4.3-6.0)
[2017-11-16 20:00] VITALS: BP 136/80; PULSE 65; RESP 18; TEMP 98.3; O2SAT 100
[2017-11-16] MEDS: CIPROFLOXACIN 500 MG TAB PO SCH (23:36)
[2017-11-17] VITALS: BP 127/71; PULSE 60; RESP 18; TEMP 98.2; O2SAT 100
[2017-11-17 04:00] VITALS: BP 132/68; PULSE 62; RESP 18; TEMP 98.1; O2SAT 100
[2017-11-17 08:10] VITALS: BP 141/80; PULSE 65; RESP 18; TEMP 98.6; O2SAT 99
[2017-11-17] MEDS: CIPROFLOXACIN 500 MG TAB PO SCH (08:50)
[2017-11-17] MEDS: DOCUSATE SODIUM 50 MG/SENNA 8.6 MG TAB PO SCH (08:50)
[2017-11-17] MEDS: SODIUM CHLORIDE 0.9% FLUSH 10 ML FLUSH IV FLUSH SCH (08:50)
[2017-11-17] MEDS: SODIUM CHLOR 0.9% 1000 ML INJ 1,000 ML IV SCH (08:51)
--- NOTE | 2017-11-17 10:03 | HHI.DS ---
Discharge Summary Admission Date Nov 16, 2017 at 01:17 Discharge Date: Nov 17, 2017 Admitting Diagnosis Pancreatitis (1) Pancreatitis ICD Code: K85.90 - Acute pancreatitis without necrosis or infection, unspecified Status: Acute (2) Adnexal mass ICD Code: N94.9 - Unspecified condition associated with female genital organs and menstrual cycle (3) UTI (urinary tract infection) ICD Code: N39.0 - Urinary tract infection, site not specified (4) Lactic acidosis ICD Code: E87.2 - Acidosis Procedures None Brief History - From Admission This is a 47-year-old female with a PMH of Pernicious Anemia on B12 who presented to the ER with complaints of epigastric abdominal pain x1 day. States symptoms started abruptly yesterday afternoon after eating pork chops and mashed potatoes. Pain is severe, 10/10, constant, non-radiating, associated w/ nausea/vomiting. No h/o similar symptoms. Denies fever, chills or diarrhea. On arrival, BP 146/68, HR 78, O2 sat 98% on RA, Afebrile. WBC 13.2, previously 1.8 on 11/15/2014. Hemoglobin 13.1, previously 8.7 on 2014. Chemistry essentially unremarkable. Lactic Acid 3.9. AST 72, ALT 43, ALP 119, Total Bili 0.6. Lipase 19,383. UA positive for UTI. CT Abdomen/ Pelvis complex bilateral cystic contiguous adnexal mass, possible cystic ovarian neoplasm, nonspecific hyperdense nodule right lower quadrant. US Gallbladder cholelithiasis, no gallbladder wall thickening or pericholecystic fluid. No previous h/o Pancreatitis. S/p Zosyn in ER. CBC/BMP: 11/16/17 1000 11/16/17 1000 Significant Findings Laboratory Tests Test 11/15/17 22:20 11/16/17 10:00 11/17/17 02:46 White Blood Count 13.2 TH/MM3 (4.0-11.0) Mean Corpuscular Hemoglobin 26.4 PG (27.0-34.0) 26.1 PG (27.0-34.0) Neutrophils (%) (Auto) 89.6 % (16.0-70.0) 73.0 % (16.0-70.0) Lymphocytes (%) (Auto) 5.3 % (9.0-44.0) Neutrophils # (Auto) 11.8 TH/MM3 (1.8-7.7) Lymphocytes # (Auto) 0.7 TH/MM3 (1.0-4.8) Urine Urobilinogen 8.0 MG/DL (LESS THAN Urine Leukocyte Esterase SMALL (NEG) Urine Bacteria MANY /hpf (NONE) Urine Mucus FEW /lpf (OCC) Blood Urea Nitrogen 5 MG/DL (7-18) 5 MG/DL (7-18) Alkaline Phosphatase 119 U/L (45-117) Aspartate Amino Transf (AST/SGOT) 72 U/L (15-37) Chloride Level 108 MEQ/L (98-107) 114 MEQ/L (98-107) Lactic Acid Level 3.9 mmol/L (0.4-2.0) Lipase 36440 U/L (73-393) 2085 U/L (73-393) Random Glucose 70 MG/DL (74-106) Albumin 3.2 GM/DL (3.4-5.0) Calcium Level 7.6 MG/DL (8.5-10.1) Carbon Dioxide Level 20.3 MEQ/L (21.0-32.0) Triglycerides Level 40 MG/DL (42-150) Cholesterol Level 112 MG/DL (120-200) HDL Cholesterol 61.1 MG/DL (40.0-60.0) Imaging Last Impressions Pelvis Ultrasound 11/16/17 0000 Signed Impressions: CONCLUSION: 1. Simple cysts involving the ovaries bilaterally as detailed above. 2. 2.5 x 2.3 x 2.1 cm solid nodule involving the anterior aspects of the right lower quadrant which correlates to the nodule seen on the recent CT scan. The appearance is nonspecific. Abdomen/Pelvis CT 11/15/177 Signed Impressions: CONCLUSION: 1. Mildly complex bilateral cystic contiguous adnexal mass. A primary consider ation is a cystic ovarian neoplasm such as a cystadenoma. No evidence of ascite s. 2. Nonspecific 2.1 x 2.6 cm hyperdense nodule in the anterior right lower quad rant may represent opacification within bowel or solid nodule. No other bowel i s opacified to this degree. 3. Appendix within normal limits. 4. Cholelithiasis. Gall Bladder Ultrasound 11/15/17 0000 Signed Impressions: CONCLUSION: Cholelithiasis. No gallbladder wall thickening or pericholecystic fluid. PE at Discharge GENERAL: This is a well-nourished, well-developed patient, in no apparent distress. CARDIOVASCULAR: Regular rate and rhythm without murmurs, gallops, or rubs. RESPIRATORY: Clear to auscultation. Breath sounds equal bilaterally. No wheezes , rales, or rhonchi. GASTROINTESTINAL: Abdomen soft, non-tender, nondistended. Normal active bowel sounds MUSCULOSKELETAL: Extremities without clubbing, cyanosis, or edema. NEURO: Alert & Oriented x4 to person, place, time, situation. Moves all ext x4 Pt update on day of discharge Follow-up visit pancreatitis. Patient seen and examined today. Reports she is doing well. States she has 2 bowel movements this morning, soft and formed. States that her abdominal pain is completely gone. States she ate well without any nausea, vomiting. States she is ready to go home. Discussed with patient dietary changes. Verbalized understanding. Denies pain and discomfort. Denies SOB/ dyspnea. Denies chest pain, palpitations, headaches, dizziness. Denies fevers, chills. Denies dysuria. Hospital Course 47-year-old female with a PMH of Pernicious Anemia on B12 who presented to the ER with complaints of epigastric abdominal pain. Gallbladder ultrasound shows cholelithiasis. No gallbladder wall thickening or pericolic cystic fluid. CT abdomen and pelvis showed mildly complex bilateral cystic contiguous adnexal mass. A primary consideration is a cystic ovarian neoplasm such as a cyst adenoma. No evidence of ascites. Nonspecific 2.1 x 2.6 cm hyperdense nodule in the anterior right lower quadrant may represent opacification in bowel or solid nodule. No other bowel opacified to this degree. Appendix within normal limits. Cholelithiasis. Pelvic ultrasound shows small cyst involving the ovaries bilaterally as detailed. 2.5 x 2.3 x 2.1 cm solid nodule involving anterior aspect of the right lower quadrant which correlates to the nodule seen in the recent CT. lipase was elevated. Patient was treated with pain medications and IV fluids. Clinically improved. She was found to have urinary tract infection and placed on oral Cipro for now. Cultures growing gram negative rods. Patient will continue Cipro antibiotic until completed. [facility] [employer] follow-up for adnexal mass. Patient has met maximal benefits of hospitalization. Clinically stable for discharge. Pt Condition on Discharge: Stable Discharge Disposition: Discharge Home Discharge Time: <= 30 minutes Discharge Instructions DIET: Follow Instructions for: Low Fat Diet Activities you can perform: Regular-No Restrictions Activities to Avoid: Driving for 24 hrs Follow up Referrals: RUG MEASURER - 3-5 Days PCP Follow-up - 2-3 Days New Medications: Ciprofloxacin (Cipro) 500 Mg Tab 500 MG PO Q12HR for Infection, #10 TAB Magdalene Tim Nov 17, 2017 10:03 Rayne Holliday MD Nov 19, 2017 18:36
[2017-11-17] MEDS ORDERED: CIPR-9 PO (10:04)
--- NOTE | 2017-11-17 10:06 | HHI.DCPOC ---
Discharge Care Plan Diagnosis: (1) Adnexal mass (2) UTI (urinary tract infection) (3) Pancreatitis Your Health Problems Are: Urinary Difficulties Goals to Promote Your Health * To prevent worsening of your condition and complications * To maintain your health at the optimal level Directions to Meet Your Goals Take your medications as prescribed Follow your dietary instruction Follow activity as directed Keep your appointments as scheduled Take your immunizations and boosters as scheduled If your symptoms worsen call your PCP, if no PCP go to Urgent Care Center or Emergency Room Smoking is Dangerous to Your Health. Avoid second hand smoke Call the 24-hour hour crisis hotline for domestic abuse at Magdalene Tim Nov 17, 2017 10:05
== END 2017-11-17 11:46 | disposition home or self-care (01) | DRG 439 ==
LOC: NEPE 21:22 → NEDA 11-16 01:17 → N06A 11-16 01:55
PROVIDERS: ADMIT Hospitalist; ATTEND Hospitalist
DX: K85.10 Biliary acute pancreatitis without necrosis or infection (principal); N39.0 Urinary tract infection, site not specified; E87.2 Acidosis; K80.20 Calculus of gallbladder without cholecystitis without obstruction; N94.9 Unspecified condition associated with female genital organs and menstrual cycle; D51.0 Vitamin B12 deficiency anemia due to intrinsic factor deficiency; D57.3 Sickle-cell trait
CPT/HCPCS: 74177; 76705; 76856; 80053; 80061; 81001; 83036; 83605; 83690; 84443; 85025; 87040; 87077; 87086; 87186; 93005; 93975; 96361; 96365; 96375; J0692; J2270; J2543; J2765; J7030; Q9967